=== PATIENT | female | born 1955 | race African-American/Black ===

== ENCOUNTER 2016-05-03 11:23 | Emergency (ER) | payer BC ==
[2016-05-03 11:49] VITALS: PULSE 63; TEMP 97.8; BMI 40.7
[2016-05-03] MEDS ORDERED: DEXAMETHASONE SOD PHOSPHATE 10 MG/1 ML VIAL IVPUSH ONE (13:35)
[2016-05-03] MEDS ORDERED: ACETAMINOPHEN 1000 MG/100 ML VIAL (NON FORMULARY) IVPB ONE (13:35)
[2016-05-03] MEDS ORDERED: PENICILLIN G BENZATHINE 1,200,000 UNIT/2 ML PFS IM ONE (13:35)
--- NOTE | 2016-05-03 13:35 | PDOC ---
History of Present Illness - General History Source: Patient Exam Limitations: No Limitations - History of Present Illness Initial Comments: CHIEF COMPLAINT: 60 y/o female with PMH HTN, sarcoidosis, fibromyalgia, GERD c/ o high blood pressure for the past 2 days. HISTORY OF PRESENT ILLNESS: The patient also states that for the past 2 days she's had a sore throat, chills, and worsening headache. She states "this is not the worst headache of my life". She took 1 aleve last night for headache. She states she is taking her BP meds as prescribed. 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 She denies fever, neck pain, changes in vision/hearing, n/v/d, CP, SOB, abd pain, back pain. Vital signs on arrival are notable for pulse of 181/104. REVIEW OF SYSTEMS: GENERAL/CONSTITUTIONAL: No fever. +chills. No weakness. No weight change. HEAD, EYES, EARS, NOSE AND THROAT: No change in vision. No ear pain or discharge. +sore throat. CARDIOVASCULAR: No chest pain or shortness of breath. RESPIRATORY: No cough, wheezing, or hemoptysis. GASTROINTESTINAL: No abd pain, nausea, vomiting, diarrhea. GENITOURINARY: No dysuria, frequency, or change in urination. MUSCULOSKELETAL: No joint or muscle swelling or pain. No neck or back pain. SKIN: No rash or easy bruising. NEUROLOGIC: +headache. No vertigo, loss of consciousness, or loss of sensation. PHYSICAL EXAM: GENERAL: The patient is awake, alert, and fully oriented, in no acute distress. She prefers the lights to be off in the room. HEAD: Normal with no signs of trauma. NECK: Tender anterior cervical lymphadenopathy. ENT: Pupils pinpoint, equal, round and reactive to light, extraocular movements intact, sclera anicteric, conjunctiva clear. 1+ erythematous tonsils with copious exudate visible on right tonsil. No hard/soft palate deformities. No petechia. LUNGS: Clear to auscultation bilaterally. Normal excursion. No respiratory distress or use of accessory muscles. CV: RRR, S1/S2, no MRG. Cap refill < 2 sec. ABDOMEN: Soft, non-distended, non-tender even to deep palpation, no hepatomegaly or splenomegaly, no masses. EXTREMITIES: Normal range of motion, no edema. NEUROLOGICAL: Normal speech, normal gait. CN II-XII grossly intact. PSYCH: Normal mood, normal affect. SKIN: Warm, dry, normal turgor, no rashes or lesions noted. <Tashia Jimenez - Last Filed: 05/03/16 18:28> <Caren Baires - Last Filed: 05/04/16 17:43> - General Chief Complaint: Blood Pressure Problem Stated Complaint: BLOOD PRESSURE PROBLEM Time Seen by Provider: 05/03/16 13:20 Past History - Past Medical History Anemia: No Asthma: No Cancer: No Cardiac Disorders: No CVA: No COPD: No CHF: No Dementia: No Diabetes: No GI Disorders: Yes Disorders: No HTN: Yes Hypercholesterolemia: Yes Liver Disease: No Suicide Attempt (Hx): No Seizures: No Thyroid Disease: No Other medical history: SARCODIOSIS, FIBROMYALGIA - Surgical History Abdominal Surgery: Yes (LAP OVARIAN CYSTECTOMY) Appendectomy: No Cardiac Surgery: No Cholecystectomy: No Lung Surgery: No Neurologic Surgery: No Orthopedic Surgery: Yes (left rotator cuff repair, left knee repair) - Immunization History Immunization Up to Date: No - Psycho/Social/Smoking Cessation Hx Anxiety: No Suicidal Ideation: No Smoking Status: No Smoking History: Never smoked Have you smoked in the past 12 months: No Number of Cigarettes Smoked Daily: 0 Information on smoking cessation initiated: No Hx Alcohol Use: No Drug/Substance Use Hx: No Substance Use Type: Alcohol Hx Substance Use Treatment: No <Tashia Jimenez - Last Filed: 05/03/16 18:28> <Caren Baires - Last Filed: 05/04/16 17:43> - Past Medical History Allergies/Adverse Reactions: Allergies Allergy/AdvReac Type Severity Reaction Status Date / Time No Known Allergies Allergy Verified 05/03/16 11:45 Home Medications: Ambulatory Orders Omeprazole [Prilosec (RX)] 20 mg PO DAILY 02/14/12 Metoprolol Succinate [Toprol XL -] 25 mg PO DAILY #30 tab.sr.24h 02/20/12 Aspirin 81 mg PO DAILY 06/23/12 Cholecalciferol (Vitamin D3) [Vitamin D] 1,000 unit PO DAILY 03/30/13 Losartan/Hydrochlorothiazide [Losartan-Hctz 100-12.5 mg Tab] 1 each PO DAILY 04/07 Ondansetron HCl [Zofran] 4 mg PO TID #14 tablet 05/14/15 Tramadol HCl [Ultram] 50 mg PO QID #20 tablet 05/14/15 Tramadol HCl [Ultram -] 50 mg PO Q4H #30 tablet 05/17/15 Mometasone/Formoterol [Dulera 100 Mcg/5 Mcg Inhaler] 2 inh IH PRN 05/22/15 *Physical Exam - Vital Signs Last Vital Signs Temp Pulse Resp BP Pulse Ox 97.8 F 63 18 181/104 100 05/03/16 11:46 05/03/16 11:46 05/03/16 11:46 05/03/16 11:46 05/03/16 11:46 <Tashia Jimenez - Last Filed: 05/03/16 18:28> - Vital Signs Last Vital Signs Temp Pulse Resp BP Pulse Ox 97.8 F 63 20 136/90 100 05/03/16 11:46 05/03/16 18:06 05/03/16 18:06 05/03/16 18:06 05/03/16 18:06 <Caren Baires - Last Filed: 05/04/16 17:43> ED Treatment Course - Medications Given in the ED: ED Medications Discontinued Medications Generic Name Dose Route Start Last Admin Trade Name Freq PRN Reason Stop Dose Admin Acetaminophen 1,000 mg 05/03/16 13:35 05/03/16 13:38 Ofirmev Injection - IVPB 05/03/16 13:36 1,000 mg ONCE ONE Administration Dexamethasone Sodium Phosphate 10 mg 05/03/16 13:35 05/03/16 13:38 Decadron Injection - IVPUSH 05/03/16 13:36 10 mg ONCE ONE Administration Sodium Chloride 1,000 mls @ 1,000 mls/hr 05/03/16 16:25 05/03/16 16:27 Normal Saline - IV 05/03/16 17:24 1,000 mls/hr ASDIR STA Administration Ketorolac Tromethamine 30 mg 05/03/16 16:26 05/03/16 16:28 Toradol Injection - IVPUSH 05/08/16 16:25 30 mg Q6H PRN Administration PAIN Penicillin G Benzathine 1,200,000 unit 05/03/16 13:35 05/03/16 13:55 Bicillin L-A - IM 05/03/16 13:36 1,200,000 unit ONCE ONE Administration <Caren Baires - Last Filed: 05/04/16 17:43> Medical Decision Making - Medical Decision Making A/P: 60 y/o female with clinical strep. Suspect the BP is elevated because of infection/discomfort. Plan is as follows: 1. IV tylenol 2. IM bicillin 3. IV decadron The patient still has headache, although BP has come down a little. Suspect the elevation in BP is secondary to infection. Ordered IV toradol Pt states her CHI is now at an 8/10, down from a 12/10. The patient's BP has again decreased. Ordered IV fluids IV fluids now completed. The patient states she now feels much better with headache rated at 4/10. Her BP is now 135/90. Will discharge to home with instructions to rest, drink plenty of fluids and take motrin/tylenol for pain. Suggested she gargle with warm salt water and eat soft diet until sore throat improves. Pt instructed to return to the ER with any worsening or concerning symptoms. The patient verbalizes understanding of all instructions, has no further questions and is awaiting discharge. <Tashia Jimenez - Last Filed: 05/03/16 18:28> - Medical Decision Making 05/04/16 17:43 Pt seen primarily by RODRICK Jimenez Agree with plan <Caren Baires - Last Filed: 05/04/16 17:43> *DC/Admit/Observation/Transfer <Tashia Jimenez - Last Filed: 05/03/16 18:28> <Caren Baires - Last Filed: 05/04/16 17:43> Diagnosis at time of Disposition: Strep pharyngitis - Discharge Dispostion Disposition: HOME Condition at time of disposition: Improved - Referrals Referrals: Renee Chacon MD [Primary Care Provider] - - Patient Instructions Printed Discharge Instructions: DI for High Blood Pressure, DI for Strep Throat Additional Instructions: Discharge Instructions: -You received 1.2M units of Bicillin as an injection for treatment of Strep throat; no more antibiotics are needed. -Drink plenty of fluids -Take Aleve or Tylenol if needed for pain -Gargle with warm salt water and eat soft foods until sore throat improves -Get plenty of rest -Follow up with your doctor within 1 week -Return to the ER with any worsening or concerning symptoms
[2016-05-03] MEDS ORDERED: ACETAMINOPHEN INJECTION 100 ML IVPB ONE (13:39)
[2016-05-03] MEDS ORDERED: DEXAMETHASONE SOD PHOSPHATE 10 MG/1 ML VIAL ONE (13:39)
[2016-05-03] MEDS ORDERED: PENICILLIN G BENZATHINE 2,400,000 UNIT/4 ML PFS ONE (13:40)
[2016-05-03] MEDS ORDERED: KETOROLAC TROMETHAMINE 30 MG/1 ML VIAL ONE (15:22)
[2016-05-03] MEDS ORDERED: SODIUM CHLORIDE 1,000 ML IV STA (16:25)
[2016-05-03] MEDS ORDERED: KETOROLAC TROMETHAMINE 30 MG/1 ML VIAL IVPUSH PRN (16:26)
[2016-05-03 18:06] VITALS: BP 136/90
== END 2016-05-03 18:36 | disposition home or self-care (01) ==
LOC: JER 11:23
PROC: 3E02329 Introduction of Other Anti-infective into Muscle, Percutaneous Approach (ICD-10-PCS; principal; 2016-05-03)
PROC: 3E033NZ Introduction of Analgesics, Hypnotics, Sedatives into Peripheral Vein, Percutaneous Approach (ICD-10-PCS; 2016-05-03)
PROC: 3E033GC Introduction of Other Therapeutic Substance into Peripheral Vein, Percutaneous Approach (ICD-10-PCS; 2016-05-03)
PROC: 3E0337Z Introduction of Electrolytic and Water Balance Substance into Peripheral Vein, Percutaneous Approach (ICD-10-PCS; 2016-05-03)
DX: J02.0 Streptococcal pharyngitis (principal); I10 Essential (primary) hypertension; E78.00 Pure hypercholesterolemia, unspecified; D86.9 Sarcoidosis, unspecified; M79.7 Fibromyalgia; R51 Headache
CPT/HCPCS: 99282-25

== ENCOUNTER 2016-08-03 10:02 | Emergency (ER) | payer BC, OTHER ==
[2016-08-03 10:11] VITALS: BMI 39.8
[2016-08-03] MEDS ORDERED: KETOROLAC TROMETHAMINE 60 MG/2 ML VIAL IM ONE (10:45)
[2016-08-03] MEDS ORDERED: ALBUTEROL SO4 2.5/IPRATROPIUM 0.5 INH SOL 3 ML VIAL.NEB. NEB ONE ×2 (10:45→11:03)
[2016-08-03] MEDS ORDERED: KETOROLAC TROMETHAMINE 60 MG/2 ML VIAL ONE (10:52)
--- NOTE | 2016-08-03 10:54 | PDOC ---
History of Present Illness - General History Source: Patient, Old Records Exam Limitations: No Limitations - History of Present Illness Initial Comments: 08/03/16 11:03 The patient is a 60-year-old woman, with a significant past medical history of hypertension, hypercholesterolemia, gastroesophageal reflux disease, fibromyalgia and sarcoidosis (not on any medications) who presents to the emergency department via walk-in for further evaluation of shortness of breath today. As per patient, her symptoms started off with a sore scratchy throat approximately 4 days ago. Her symptoms worsened into a productive cough with yellow sputum, yesterday, with an associated intermittent band-like headache and fever (measured 100.2 by the school's nurse) and generalized body aches. She sought further medical evaluation by her PMD, Dr. Renee Chacon, who ultimately started the patient on a Z-KINZA. After three doses and the use of Acetaminophen and Robitussin, her symptoms are not alleviated, and i snot significantly better thus presenting to the ED. No sick contacts. No recent travel. Patient denies leg swelling, hemoptysis. No chills, weakness, loss of appetite No chest pain, lightheadedness, dizziness, palpitations. No abdominal pain, nausea, vomiting, diarrhea. No urinary complaints. Allergies: No Known Drug Allergies. Past Surgical History: Left rotator cuff surgery. Left knee repair. Lap ovarian cystectomy. 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 No EtOH and recreational drug use. Primary Care Physician: Dr. Renee Chacon [phone]/ <Courtney [place] - Last Filed: 08/03/16 11:50> <Berry Gonzales - Last Filed: 08/03/16 14:37> - General Chief Complaint: Respiratory Stated Complaint: COUGH, VOMITING Time Seen by Provider: 08/03/16 10:19 Past History <Courtney [place] - Last Filed: 08/03/16 11:50> - Past Medical History Anemia: No Asthma: No Cancer: No Cardiac Disorders: No CVA: No COPD: No CHF: No Dementia: No Diabetes: No GI Disorders: Yes Disorders: No HTN: Yes Hypercholesterolemia: Yes Liver Disease: No Suicide Attempt (Hx): No Seizures: No Thyroid Disease: No Other medical history: SARCOIDOSIS. FIBROMYALGIA. - Surgical History Abdominal Surgery: Yes (LAP OVARIAN CYSTECTOMY) Appendectomy: No Cardiac Surgery: No Cholecystectomy: No Lung Surgery: No Neurologic Surgery: No Orthopedic Surgery: Yes (left rotator cuff repair, left knee repair) - Immunization History Immunization Up to Date: No - Psycho/Social/Smoking Cessation Hx Anxiety: No Suicidal Ideation: No Smoking Status: No Smoking History: Never smoked Have you smoked in the past 12 months: No Number of Cigarettes Smoked Daily: 0 Hx Alcohol Use: Yes (social.) Drug/Substance Use Hx: No Substance Use Type: Alcohol Hx Substance Use Treatment: No <Berry Gonzales - Last Filed: 08/03/16 14:37> - Past Medical History Allergies/Adverse Reactions: Allergies Allergy/AdvReac Type Severity Reaction Status Date / Time No Known Allergies Allergy Verified 08/03/16 10:08 Home Medications: Ambulatory Orders Omeprazole [Prilosec (RX)] 20 mg PO DAILY 02/14/12 Metoprolol Succinate [Toprol XL -] 25 mg PO DAILY #30 tab.sr.24h 02/20/12 Cholecalciferol (Vitamin D3) [Vitamin D] 1,000 unit PO DAILY 03/30/13 Losartan/Hydrochlorothiazide [Losartan-Hctz 100-12.5 mg Tab] 1 each PO DAILY 04/07 Mometasone/Formoterol [Dulera 100 Mcg/5 Mcg Inhaler] 2 inh IH PRN 05/22/15 Duloxetine HCl 30 mg PO BID 08/03/16 Review of Systems - Review of Systems Able to Perform ROS?: Yes Comments:: 08/03/16 11:03 CONSTITUTIONAL: Reported: Fever. Generalized Body Aches. No reported: Chills, Diaphoresis, Generalized Weakness, Loss of Appetite HEENT: Reported: Sore Throat. No reported: Rhinorrhea, Nasal Congestion, Throat Swelling, Difficulty Swallowing, Mouth Swelling, Ear Pain, Eye Pain, Visual Changes CARDIOVASCULAR: No reported: Chest Pain, Syncope, Palpitations, Irregular Heart Rate, Lightheadedness, Peripheral Edema RESPIRATORY: Reported: Cough. Shortness of Breath. No reported: SOB with Exertion, Orthopnea , Wheezing, Stridor, Hemoptysis GASTROINTESTINAL: No reported: Abdominal pain, Abdominal Distension, Nausea, Vomiting, Diarrhea, Constipation, Melena, Hematochezia GENITOURINARY: No reported: Dysuria, Frequency, Urgency, Hesitancy, Flank Pain, Genital Pain MUSCULOSKELETAL: Reported: Generalized Body Aches. No reported:Arthralgia, Joint Swelling, Back pain, Neck Pain SKIN: No reported: Rash, Itching, Pallor HEMEATOLOGIC/IMMUNOLOGIC: No reported: Easy Bleeding, Easy Bruising, Lymphadenopathy, Frequent infections ENDOCRINE: No reported: Unexplained Weight Gain, Unexplained Weight Loss, Heat Intolerance , Cold Intolerance NEUROLOGIC: Reported: Headache No reported: Focal Weakness, Paresthesias, Vertigo, Lightheadedness, Unsteady Gait, Seizure, Mental Status Changes, Incontinence PSYCHIATRIC: No reported: Anxiety, Depression <[place]RoderickCourtney - Last Filed: 08/03/16 11:50> *Physical Exam - Vital Signs Last Vital Signs Temp Pulse Resp BP Pulse Ox 100.2 F H 97 H 19 138/74 96 08/03/16 10:08 08/03/16 10:08 08/03/16 10:08/03/16 10:08/03/16 10:08 - Physical Exam Comments: 08/03/16 11:03 GENERAL: The patient is awake, alert, and fully oriented, Nontoxic - in no acute distress. HEAD: Normocephalic, atraumatic. EYES: extraocular movements intact, sclera anicteric, conjunctiva clear. ENT: Normal voice, Moist mucous membranes. NECK: Normal range of motion, supple LUNGS: Breath sounds equal, clear to auscultation bilaterally. No wheezes, no rhonchi, no rales. HEART: Regular rate and rhythm, without murmur, rub or gallop. ABDOMEN: Soft, nontender, normoactive bowel sounds. No guarding, no rebound.No CVA tenderness EXTREMITIES: Normal range of motion, no edema. No clubbing or cyanosis. No cords, erythema, or tenderness. NEUROLOGICAL: No facial assymetry, Normal speech, PSYCH: Normal mood, normal affect. SKIN: Warm, Dry, normal turgor <Roderick [place]ine - Last Filed: 08/03/16 11:50> - Vital Signs Last Vital Signs Temp Pulse Resp BP Pulse Ox 100.2 F H 97 H 19 138/74 96 08/03/16 10:08 08/03/16 10:08 08/03/16 10:08 08/03/16 10:08 08/03/16 10:08 <Berry Gonzales - Last Filed: 08/03/16 14:37> Heart Score/ECG Review - ECG Impressions Comment:: 08/03/16 14:36 Twelve-lead EKG was performed and reviewed by me. There is normal sinus rhythm with a normal rate. Rate of 100 The axis is normal. The intervals are normal. There is normal R wave progression There are no ST or T wave abnormalities. Impression: Normal twelve-lead EKG <Berry Gonzales - Last Filed: 08/03/16 14:37> ED Treatment Course - RADIOLOGY Radiograph Interpretation: 08/03/16 11:50 EXAM: RAD/CHEST PA LAT Chest: Interpreted by Dr. Gilberto Moreno IMPRESSION: 2 views reveal no sign of infiltrate, failure or pneumothorax. Pleural fluid or atelectasis is not seen. There are degenerative changes, large heart and unfolded aorta. Since 01/14/2015, there is no change of an adverse nature. Incidental note is made of previous left shoulder surgery. - Medications Given in the ED: ED Medications Discontinued Medications Generic Name Dose Route Start Last Admin Trade Name Freq PRN Reason Stop Dose Admin Ketorolac Tromethamine 60 mg 08/03/16 10:45 08/03/16 10:57 Toradol Injection - IM 08/03/16 10:46 60 mg ONCE ONE Administration <Courtney [place] - Last Filed: 08/03/16 11:50> - RADIOLOGY Radiology Studies Ordered: Category Date Time Status CHEST PA & LAT [RAD] Stat Radiology 08/03/16 10:45 Ordered <Berry Gonzales - Last Filed: 08/03/16 14:37> Medical Decision Making - Medical Decision Making 08/03/16 10:51 60y F hx of sarcoidism (well controlled, not on steroids), fibromyalgia, presents with sore throat, body aches, cough productive of yellowish sputum and fever to 101. exam unremarkable wit hclear lungs. suspect viral syndrome, possible influenza. pt on zpack from PMD will ck cxr, will give duoneb and toradol A portion of this note was documented by scribe services under my direction. I have reviewed the details of the note, within reason, and agree with the documentation with the following case summary and management plan written by me 08/03/16 11:59 pt feeling improved cxr and flu negative will dc with supportive care return precautions were discussed I discussed the physical exam findings, ancillary test results and final diagnoses with the patient. I answered all of the patient's questions. The patient was satisfied with the care received and felt comfortable with the discharge plan and treatment plan. The patient will call their primary care physician within 24 hours to arrange follow-up and will return to the Emergency Department with any new, persistent or worsening symptoms. <Berry Gonzales - Last Filed: 08/03/16 14:37> *DC/Admit/Observation/Transfer - Attestations Scribe Attestion: 08/03/16 11:04 Documentation prepared by Courtney [place], acting as emergency medical dispatcher for Berry Gonzales MD. <Courtney [place] - Last Filed: 08/03/16 11:50> - Discharge Dispostion Admit: No <Berry Gonzales - Last Filed: 08/03/16 14:37> Diagnosis at time of Disposition: Upper respiratory infection Qualifiers: URI type: unspecified viral URI Qualified Code(s): J06.9 - Acute upper respiratory infection, unspecified - Discharge Dispostion Disposition: HOME Condition at time of disposition: Improved - Referrals Referrals: Renee Chacon MD [Primary Care Provider] - - Patient Instructions Printed Discharge Instructions: DI for Viral Upper Respiratory Infection -- Adult, Common Cold Additional Instructions: Return to the emergency department immediately with ANY new, persistent or worsening symptoms. Take ibuprofen/tylenol for your body aches Take mucinex to help your congestion. make sure you are drinking plenty of fluids. You MUST call and follow up with your doctor in 2 or 3 days for further evaluation of your symptoms. Results were discussed with you. Please make sure your doctor reviews the results of your emergency evaluation. Print Language: ZAMBIAN - Post Discharge Activity Work/School Note: Back to Work
[2016-08-03 12:45] VITALS: BP 136/88; PULSE 94; TEMP 99.1
--- NOTE | 2016-08-05 12:05 | EKG ---
Test Reason : Blood Pressure : / mmHG Vent. Rate : 100 BPM Atrial Rate : 100 BPM P-R Int : 134 ms QRS Dur : 090 ms QT Int : 352 ms P-R-T Axes : 034 010 007 degrees QTc Int : 454 ms NORMAL SINUS RHYTHM NORMAL ECG WHEN COMPARED WITH ECG OF 31-JUL-2010 09:40, VENT. RATE HAS INCREASED BY 42 BPM Confirmed by DAILY GIBSON MD ([id number]) on 08/05/2016 12:04:53 PM Referred By: Confirmed By:DAILY GIBSON MD
== END 2016-08-03 12:45 | disposition home or self-care (01) ==
LOC: SUPCPDRO 10:02 → JER 10:02
PROC: 3E0F7GC Introduction of Other Therapeutic Substance into Respiratory Tract, Via Natural or Artificial Opening (ICD-10-PCS; principal; 2016-08-03)
PROC: 3E0233Z Introduction of Anti-inflammatory into Muscle, Percutaneous Approach (ICD-10-PCS; 2016-08-03)
DX: J06.9 Acute upper respiratory infection, unspecified (principal); I10 Essential (primary) hypertension; E78.00 Pure hypercholesterolemia, unspecified; D86.9 Sarcoidosis, unspecified; M79.7 Fibromyalgia
CPT/HCPCS: 71020-TC; 87804; 93005; 93010; 99283-25

== ENCOUNTER 2020-10-07 12:07 | Emergency (ER) | payer OTHER, BC ==
[2020-10-07 12:20] VITALS: BMI 43.0
[2020-10-07] MEDS ORDERED: CASIRIVIMAB (REGN10933) 600 MG, IMDEVIMAB (REGN10987) 600 MG in SODIUM CHLORIDE 100 ML IVPB ONE (13:27)
[2020-10-07 19:03] VITALS: BP 122/75; PULSE 86; TEMP 98.6
== END 2020-10-07 19:04 | disposition home or self-care (01) ==
LOC: JCOVINFU 12:07
DX: U07.1 COVID-19 (principal)
CPT/HCPCS: 99284-25; M0243; Q0243